=== PATIENT | female | born 1970 | race African-American/Black ===

== ENCOUNTER 2024-12-01 16:32 | Emergency (ER) | payer MEDICAID, OTHER ==
[~2024-12-01] VITALS: Ht 167.6 cm; Wt 75.0 kg
[2024-12-01] MEDS: DIPHENHYDRAMINE 50MG/ML VIAL IM ONE (18:32)
[2024-12-01] MEDS: HALOPERIDOL LACTATE 5MG/ML VIAL IM ONE (18:32)
[2024-12-01] MEDS: LORAZEPAM 2MG/ML UD SYRINGE IM SCH (18:32)
[2024-12-01 19:15] VITALS: O2SAT 100
[2024-12-01 21:05] LABS: BASOPHILS % 0.4 % (0.0-2.0); EOSINOPHILS % 0.6 % (0.0-5.0); HEMATOCRIT. 39.7 % (36.0-48.0); HEMOGLOBIN. 13.1 g/dL (12.0-16.0); LYMPHOCYTES % 29.0 % (20.0-50.0); MEAN PLATELET VOLUME 8.6 fl (7.4-10.4); MONOCYTES % 5.1 % (2.0-8.0); NEUTROPHILS % 64.9 % (40.0-76.0); PLATELET 262 x1000/uL (130-400); RED BLOOD CELL COUNT 4.22 mill/uL (4.2-5.4); RED CELL DISTRIBUTION WIDTH 14.9 % (11.6-14.6)
[2024-12-01 21:24] LABS: *AMPHETAMINES SCREEN URINE NEGATIVE (NEGATIVE); *BARBITURATES SCREEN URINE NEGATIVE (NEGATIVE); *BENZODIAZEPINES SCREEN URINE NEGATIVE (NEGATIVE); *COCAINE SCREEN URINE NEGATIVE (NEGATIVE)
[2024-12-01 21:25] LABS: CANNABINOID URINE SCREEN NEGATIVE (NEGATIVE); ECSTASY MDMA SCREEN URINE NEGATIVE (NEGATIVE); METHADONE URINE SCREEN NEGATIVE (NEGATIVE); OPIATES URINE SCREEN NEGATIVE (NEGATIVE); PHENCYCLIDINE URINE SCREEN NEGATIVE (NEGATIVE)
[2024-12-01 21:25] LABS: CREATININE 1.0 mg/dL (0.6-1.0); UREA NITROGEN BLOOD 9 mg/dL (9-23)
[2024-12-01 21:26] LABS: ETHANOL BLOOD < 10 mg/dL (<10)
[2024-12-02] MEDS ORDERED: HYDROXYZINE 25MG TABLET PO PRN (10:30)
[2024-12-02 17:00] VITALS: BP 133/84; PULSE 69; RESP 14; TEMP 36.7; O2SAT 100
[2024-12-02] MEDS ORDERED: RISPERIDONE 0.5MG TABLET PO SCH (21:00)
== END 2024-12-02 17:43 ==
LOC: ER 16:32
DX: F22 Delusional disorders (principal); J45.909 Unspecified asthma, uncomplicated; Z65.3 Problems related to other legal circumstances; Z79.899 Other long term (current) drug therapy; Z20.822 Contact with and (suspected) exposure to COVID-19
CPT/HCPCS: 80305; 80048; 80307; 80329; 80320; 85025; 36415; 93005; 96372; 99291; 87426; J1200; J1630; J2060; 99285; G0480